=== PATIENT | male | born 1990 | race Hispanic/Latino ===

== ENCOUNTER 2021-03-21 10:52 | Emergency (ER) | payer OTHER ==
--- OUTSIDE RECORDS SUMMARY | 2021-03-21 10:56 | XMS REPORT | Continuity of Care Document ---
:1990 Author Organization [facility] t Address [address] [place] [address] Care Team Providers Name Role Phone Asked, Pcp Primary Care Physician Unavailable Usama Hunter DO Attending Clinician KARMEN Attending Clinician Unavailable MD JESSICA HERR Attending Clinician Unavailable HERR Attending Clinician Unavailable ROSIE Attending Clinician Unavailable MD JESSICA HERR Admitting Clinician Unavailable Payers Payer Name Policy Type Policy Effective Date Expiration Date Sour ce Number [facility] [id number] 2019 [id number]PresentMilitar y Problems Condition Condition Condition Status Onset Resolution Last Treating Co mments Source Name Details Category Date Date Treatment Clinician Date Mixed Mixed Problem Active [facility] anxiety Anxiety 4-20 Family and and 00:00: Practic depressive Depressive 00 e disorder Disorder Acute low Acute Low Problem Active 2019-08 Andrea anastasiya back pain Back Pain 09-02 Fami ly 00:00: Practic 00 e Gynecomast Gynecomast Problem Active 2019-08 [facility] ia ia 08-12 Family 00:00: Practic 00 e Infection Infection Problem Active 2019-08 Andrea anastasiya of toe of Toe 08-12 Family 00:00: Practic 00 e Bilateral Bilateral Problem Active 2019-08 Andrea langford discharge Discharge 08-12 Fami ly from from 00:00: Practic nipples Nipples 00 e Generalize Generalize Problem Active 2019-08 [facility] d anxiety d Anxiety 0-30 Fami ly disorder Disorder 00:00: Practi c 00 e Prediabete Prediabete Problem Active [facility] s s 2-07 Family 00:00: Practic 00 e Liver Liver Problem Active [facility] enzymes Enzymes 2-07 Family abnormal Abnormal 00:00: Practi c 00 e Body mass Body Mass Problem Active Andrea anastasiya index 30+ Index 30+ 1-30 Fami ly - obesity - Obesity 00:00: Prac tic 00 e Disorder Disorder Problem Active [facility] 09-09 Fami ly 00:00: Practic 00 e Essential Essential Problem Active Andrea sandovale hypertensi Hypertensi 1-30 Fa jean-paul on on 00:00: Practic 00 e Low back Low Back Problem Active [facility] pain Pain 1-30 Family 00:00: Practic 00 e Inguinal Inguinal Problem Active [facility] pain Pain -30 Family 00:00: Practic 00 e Concussion Concussion Problem Active [facility] with loss with Loss 30 Fami ly of of 00:00: Practic consciousn Consciousn 00 e ess ess History of History of Problem Active [facility] Jones's 09-09 Family palsy Palsy 00:00: Practic 00 e Cigarette Cigarette Problem Active Andrea sandovale smoker Smoker -30 Family 00:00: Practic 00 e Allergies, Adverse Reactions, Alerts Allergy Allergy Status Severity Reaction(s) Onset Inactive Treating Comm ents Source Name Type Date Date Clinician No Known DA Active U 2018-08 [facility] 09[facility]01 [facility] No Known DA Active U 2008-0 [facility] Contrast 3- [facility] No Known DA Active U 2008-0 [facility] Drug 3- [facility] No Known DA Active U 2009-0 [facility] Food 3- [facility] No Known DA Active U 2009-0 [facility] Other 3- [facility] Allergie 00:00: d [facility] Social History Social Habit Start Date Stop Date Quantity Comments Source History of Snuff User [facility] tobacco use Hospital Tobacco use and 2020-12-04 2020-12-[address] exposure 00:00:00 00:00:00 Hospital Alcohol intake 2020-12-04 2020-12-04 Current drinker [facility] 00:00:00 00:00:00 of alcohol Hospital (finding) Tobacco Comment 2019-09-07 2019-09-07 dip [facility] 00:00:00 00:00:00 Hospital Alcohol Comment 2019-09-07 2019-09-07 socially [facility] 00:00:00 00:00:00 Hospital Sex Assigned At [birth year] [facility] 00:00:00 00:00:00 Hospital Smoking Status Start Date Stop Date Source Former smoker 2020-12-04 00:00:00 2020-12-04 [facility] Medications Ordered Filled Start Stop Current Ordering Indication Dosage Frequency Signature Comments Components Source Medication Medication Date Date Medication? Clinician (SIG) Name Name ondansetron 2020- No 4mg Q8H Take 1 Met hodi (Zofran) 4 -26 04-30 tablet (4 st MG tablet 00:00: 04:59 mg total) Ho spita 00 :00 by mouth l every 8 (eight) hours as needed for nausea or vomiting for up to 3 days. loperamide 2020- No 2mg Q.25D Take 1 Met [facility] (IMODIUM) 2 -26 -30 capsule (2 s t mg capsule 00:00: 04:59 mg total) H ospita 00 :00 by mouth 4 l (four) times a day as needed for diarrhea for up to 3 days. ALPRAZolam Yes .5mg Q24H Take 0.5 Met h[facility] (XANAX) 0.5 4-[address] MG tablet 00:00: mouth [facility]ospita 00 daily as l needed. sertraline Yes 100mg QD Take 100 Me thodi (ZOLOFT) 4-[address] 100 MG 00:00: mouth [facility]osp[facility] tablet 00 daily. l sertraline Yes 50mg QD Take 50 mg M ethodi (ZOLOFT) 50 4-[address] MG tablet 00:00: daily. Hospit a 00 l amLODIPine Yes 10mg QD Take 10 mg M ethodi (NORVASC) 4-[address] 10 mg 00:00: daily. Hospita tablet 00 l alprazolam alprazolam No alprazolam [facility] 0.5 mg 0.5 mg 0.5 mg Family tablet TAKE tablet TAKE tablet Practic 1 TABLET BY 1 TABLET BY TAKE 1 e MOUTH EVERY MOUTH EVERY TABLET BY DAY DAY MOUTH NEEDED NEEDED EVERY DAY NEEDED amlodipine amlodipine No amlodipine [facility] 10 mg 10 mg 10 mg Family tablet TAKE tablet TAKE tablet Practic 1 TABLET BY 1 TABLET BY TAKE 1 e MOUTH EVERY MOUTH EVERY TABLET BY DAY DAY MOUTH EVERY DAY ergocalcife ergocalcife No ergocalcif [facility] rol rol wes Family (vitamin (vitamin (vitamin Pra ctic D2) 1,250 D2) 1,250 D2) 1,250 e mcg (50,000 mcg (50,000 mcg unit) unit) (50,000 capsule capsule unit) TAKE 1 TAKE 1 capsule CAPSULE BY CAPSULE BY TAKE 1 MOUTH MOUTH CAPSULE BY WEEKLY WEEKLY MOUTH WEEKLY hydrochloro hydrochloro No hydrochlor [facility] thiazide 25 thiazide 25 othiazide Family mg tablet mg tablet 25 mg Prac tic TAKE 1 TAKE 1 tablet e TABLET BY TABLET BY TAKE 1 MOUTH EVERY MOUTH EVERY TABLET BY DAY DAY MOUTH DIRECTED DIRECTED EVERY DAY DIRECTED hydroxyzine hydroxyzine No hydroxyzin [facility] HCl 25 mg HCl 25 mg e HCl 25 F amily tablet Take tablet Take mg tablet Practic 1 tablet 1 tablet Take 1 e every day every day tablet by oral by oral every day route at route at by oral bedtime for bedtime for route at 30 days. 30 days. bedtime for 30 days. sertraline sertraline No 2 Q1D sertraline [facility] 100 mg 100 mg 100 mg Family tablet Take tablet Take tablet Practic 2 tablets 2 tablets Take 2 e every day every day tablets by oral by oral every day route as route as by oral directed directed route as for 90 for 90 directed days. days. for 90 days. Immunizations Ordered Immunization Filled Immunization Date Status Commen ts Source Name Name COVID-19, mRNA, COVID-19, mRNA, 2021-01-15 Completed [facility] LNP-S, PF, 30 LNP-S, PF, 30 00:00:00 Practice mcg/0.3 mL dose mcg/0.3 mL dose COVID-19, mRNA, COVID-19, mRNA, 2020-12-31 Completed [facility] Family LNP-S, PF, 30 LNP-S, PF, 30 00:00:00 Practice mcg/0.3 mL dose mcg/0.3 mL dose influenza, influenza, 2020-05-[address] [facility] injectable, injectable, 00:00:00 Practice quadrivalent quadrivalent influenza, influenza, 2019-04-[address] [facility] injectable, injectable, 00:00:00 Practice quadrivalent quadrivalent Td (adult) Td (adult) 2019-02-[address] [facility] preservative free preservative free 00:00:00 Practice Vital Signs Vital Name Observation Time Observation Value Comments Source BP Diastolic 2021-02-16 00:00:00 87 mm[Hg] [facility] Practice Height 2021-02-16 00:00:00 71.5 [in_i] [facility] Practice BMI (Body Mass 2021-02-16 00:00:00 37.8 kg/m2 [facility]) Practice BP Systolic 2021-02-16 00:00:00 145 mm[Hg] [facility] Body Weight 2021-02-16 00:00:00 275 [lb_av] [facility] BP Diastolic 2021-02-02 00:00:00 62 mm[Hg] [facility] Height 2021-02-02 00:00:00 71.5 [in_i] [facility] BMI (Body Mass 2021-02-02 00:00:00 37.3 kg/m2 [facility] Practice BP Systolic 2021-02-02 00:00:00 153 mm[Hg] [facility] Body Weight 2021-02-02 00:00:00 271 [lb_av] [facility] BP Diastolic 2021-01-19 00:00:00 81 mm[Hg] [facility] Height 2021-01-19 00:00:00 71.5 [in_i] [facility] BMI (Body Mass 2021-01-19 00:00:00 37.4 kg/m2 [facility] Practice BP Systolic 2021-01-19 00:00:00 144 mm[Hg] [facility] Practice Body Weight 2021-01-19 00:00:00 271.8 [lb_av] [facility] BP Diastolic 2021-01-03 00:00:00 84 mm[Hg] [facility] Height 2021-01-03 00:00:00 71.5 [in_i] [facility] BMI (Body Mass 2021-01-03 00:00:00 38.4 kg/m2 [facility] BP Systolic 2021-01-03 00:00:00 133 mm[Hg] [facility] Body Weight 2021-01-03 00:00:00 279.3 [lb_av] [facility] BP Diastolic 2020-12-22 00:00:00 101 mm[Hg] [facility] Height 2020-12-22 00:00:00 71.5 [in_i] [facility] BMI (Body Mass 2020-12-22 00:00:00 37.8 kg/m2 [facility] BP Systolic 2020-12-22 00:00:00 158 mm[Hg] [facility] Body Weight 2020-12-22 00:00:00 275 [lb_av] [facility] BP Diastolic 2020-11-28 00:00:00 100 mm[Hg] [facility] Height 2020-11-28 00:00:00 71.5 [in_i] [facility] BMI (Body Mass 2020-11-28 00:00:00 38.6 kg/m2 [facility] BP Systolic 2020-11-28 00:00:00 147 mm[Hg] [facility] Body Weight 2020-11-28 00:00:00 281 [lb_av] [facility] BP Diastolic 2020-09-22 00:00:00 93 mm[Hg] [facility] Height 2020-09-22 00:00:00 71.5 [in_i] [facility] BMI (Body Mass 2020-09-22 00:00:00 38.4 kg/m2 [facility] BP Systolic 2020-09-22 00:00:00 142 mm[Hg] [facility] Body Weight 2020-09-22 00:00:00 279 [lb_av] [facility] Height 2020-09-14 00:00:00 71.5 [in_i] [facility] BMI (Body Mass 2020-09-14 00:00:00 35.8 kg/m2 [facility] Body Weight 2020-09-14 00:00:00 260 [lb_av] [facility] Height 2020-07-03 00:00:00 71.5 [in_i] [facility] BMI (Body Mass 2020-07-03 00:00:00 36.4 kg/m2 [facility] Body Weight 2020-07-03 00:00:00 265 [lb_av] [facility] BP Diastolic 2020-06-07 00:00:00 86 mm[Hg] [facility] Height 2020-06-07 00:00:00 71.5 [in_i] [facility] BMI (Body Mass 2020-06-07 00:00:00 38.4 kg/m2 [facility] BP Systolic 2020-06-07 00:00:00 136 mm[Hg] [facility] Body Weight 2020-06-07 00:00:00 279 [lb_av] [facility] Height 2019-11-10 00:00:00 71.5 [in_i] [facility] BP Diastolic 2019-09-22 00:00:00 84 mm[Hg] [facility] Height 2019-09-22 00:00:00 71.5 [in_i] [facility] BMI (Body Mass 2019-09-22 00:00:00 37.1 kg/m2 [facility] BP Systolic 2019-09-22 00:00:00 140 mm[Hg] [facility] Body Weight 2019-09-22 00:00:00 270 [lb_av] [facility] BP Diastolic 2019-09-09 00:00:00 106 mm[Hg] [facility] Height 2019-09-09 00:00:00 71.5 [in_i] [facility] BMI (Body Mass 2019-09-09 00:00:00 36.1 kg/m2 [facility] Practice BP Systolic 2019-09-09 00:00:00 146 mm[Hg] [facility] Body Weight 2019-09-09 00:00:00 262.8 [lb_av] [facility] Systolic blood 2020-12-04 18:32:40 124 mm[Hg] [facility] pressure Diastolic blood 2020-12-04 18:32:40 59 mm[Hg] [facility] pressure Heart rate 2020-12-04 18:32:40 79 /min [facility] Body temperature 2020-12-04 18:32:40 36.72 [facility] Respiratory rate 2020-12-04 18:32:40 16 /min [facility] Oxygen saturation in 2020-12-04 18:32:40 97 /min [facility] Arterial blood by Pulse oximetry Body height 2020-12-04 16:04:00 180.3 cm [facility] Body weight 2020-12-04 16:04:00 108.863 kg [facility] BMI 2020-12-04 16:04:00 33.47 kg/m2 [facility] Procedures Procedure Date / Time Performing Clinician Source Performed US, thyroid 2021-02-16 00:00:00 [facility] US, abdomen, complete 2021-02-16 00:00:00 [facility] US, echocardiogram 2021-02-16 00:00:00 [facility] US, abdomen, complete 2021-02-02 00:00:00 [facility] US, thyroid 2021-02-02 00:00:00 [facility] electrocardiogram 2021-02-02 00:00:00 [facility] US, echocardiogram 2021-02-02 00:00:00 [facility] MRI, brain + internal 2021-01-19 00:00:00 [facility] canal, w/wo Practice contrast US, abdomen, complete 2021-01-19 00:00:00 [facility] RESPIRATORY PATHOGEN PANEL 2020-12-04 16:36:00 [facility] WITH COVID-19 RT-PCR HC COMPLETE BLD COUNT 2020-12-04 16:23:00 Cassius [facility] W/AUTO DIFF COMPREHENSIVE METABOLIC 2020-12-04 16:23:00 Cassius Hunter [facility] PANEL ESTIMATED GFR 2020-12-04 16:23:00 Cassius Hunter [facility] electrocardiogram 2020-09-22 00:00:00 [facility] Practice MAMMO, diagnostic, digital, 2020-06-07 00:00:[address] [facility] bilateral Practice US, breast, bilateral 2020-06-07 00:00:00 Jun tamayo [facility] Practice Hyperventilation Therapy [facility] for Tra[facility] Injury Pract ice Plan of Care Planned Activity Planned Date Details Comments Source Future Scheduled Test COVID-19 VACCINE (1) [facility] [code = COVID-19 VACCINE (1)] Future Scheduled Test Hepatitis C screening [facility] (procedure) [code = 702878600] Future Scheduled Test INFLUENZA VACCINE M [facility] [code = INFLUENZA VACCINE] Encounters Start End Encounter Admission Attending Care Care Encounter Source Date/Time Date/Time Type Type Clinicians Facility Department ID 2021-02-16 2021-02-16 Merry [facility] [place] - [id number] [facility] ill[facility] 00:00:00 00:00:00 JUDI Carpio: [facility] Medical - Pract ic [address], [address], [facility], [place]) [place] [address] , Ph. 2021-02-02 2021-02-[facility] [place] [facility] [id number] [facility] 00:00:00 00:00:00 JUDI Carpio: [facility] Medical - Pract ic [address], [address] [facility] [place] [address] , Ph. 2021-01-19 2021-01-19 Merry [facility] [place] - [id number] V illage 00:00:00 00:00:00 JUDI Carpio: [facility] Medical - Pract ic [address], [address], [facility], [place]) [place] [address] , Ph. 2021-01-03 2021-01-03 Merry N [facility] [place] - [id number] V illage 00:00:00 00:00:00 JUDI Carpio: [facility] [address] Medical - Practi c Shadow [address], [place] [address] , Ph. 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 2020-12-04 2020-12-04 Emergency Dale, Cassius [id number] Methodi 11:00:00 13:41:[id number] 3.430.2.7 Hospit a .[id number] l .8 2020-12-04 2020-12-04 Emergency DALE, CASSIUS [facility] 064 [id number] [place] 00:00:00 00:00:[address] 2020-12-04 2020-12-04 Travel [id number] Methodi 00:00:00 00:00:[id number] 3.430.2.7 0.2.7.3.698 Ho spita .[id number] 084.8 l .8 2020-11-28 2020-11-28 Nguyễn Tee [facility] [place] [id number] [facility] 00:00:00 00:00:00 Amor Lang Famil y 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 2020-09-22 2020-09-22 Julianna Harris [facility] [id number] [facility] 00:00:00 00:00:00 [facility] [id number] Medical - Prac tic Shadow [address]HOU_[address] [facility], [address] [address] , Ph. 2020-09-14 2020-09-14 [facility] [place] - [id number] V illage 00:00:00 00:00:00 Amor Loza Famil y CUTTING TOOL SHARPENER: [id number] Medical - Prac tic [address], [place] [address] , Ph. 2020-07-03 2020-07-03 [facility] [place] - [id number] [facility] 00:00:00 00:00:00 [facility] Lizzymn, Medical - Pract lawson MD: [id number], [place] [address] , Ph. 2020-06-07 2020-06-07 June [facility] [place] - [id number] [facility] 00:00:00 00:00:00 [facility] Lizzymn, Medical - Pract lawson MD: [id number] [address], [place] [address] , Ph. 2020-02-05 2020-02-05 Emergency CHIN, SHIAU [facility] 064 [id number] [place] 00:00:00 00:00:[address] 2020-01-31 2020-01-31 Emergency DE ALONZO, [facility] 064 [id number] [place] 00:00:00 00:00:00 JUNG Blanca2 Nm thodi 2019-11-10 2019-11-10 [facility] [place] - [id number] [facility] 00:00:00 00:00:00 [facility] Josh, Medical - Pract lawson MD: [id number] [address], [place] [address] , Ph. 2019-09-22 2019-09-22 June [facility] [place] - [id number] [facility] 00:00:00 00:00:00 [facility] Lizzymn, Medical - Pract lawson MD: [id number] [address] [facility], [address], [place] [address] , Ph. 2019-09-09 2019-09-09 June [facility] [place] - [id number] [facility] 00:00:00 [facility]:00[facility]00 [facility] - Pract ic MD: [id number] ASPEN_TINO[address] [facility], [address], [place] [address] , Ph. 2019-09-06 2019-09-07 [place] [address] [id number] [place] 00:00:00 00:00:00 NADER Barajas[address] Results Test Description Test Time Test Comments Results Result Comments Source HFE gene mutations tested for in Blood or Tissue by Bruce sin 2021-01-29 20:03:00 genetics method Nominal Test Item Value Reference Range Interpretation Comme nts hereditary hemochromatosis DNA mut (test code = hereditary see belo w hemochromatosis DNA mut) [facility] IgG Ab [Units/volume] in Serum by [id number] 20:03:00 Test Item Value Reference Range Interpretation Comments ELIDA screen, ifa (test code = ELIDA negative negative screen, ifa) [facility] [Presence] in [id number] 20:03:00 Test Item Value Reference Range Interpretation Comments mitochondrial Ab screen (test code = negative negative mitochondrial Ab screen) mitochondrial Ab titer (test code = tnp mitochondrial Ab titer) [facility] free and total panel [Mass/volume] - Serum or [id number] 20:03:00 Test Item Value Reference Range Interpretation Comments testosterone, total, MS (test code 233 NG/dL 250-1100 L = testosterone, total, MS) testosterone, free (test code = 77.7 pg/mL 35.0-155.0 testosterone, free) [facility] CenterCeruloplasmin [Mass/volume] in Serum or [id number] 20:03:00 Test Item Value Reference Range Interpretation Comments ceruloplasmin (test code = 26 mg/dL 18-36 ceruloplasmin) [facility]iodothyronine (T3) [Mass/volume] in Serum or Plasma 2021-01-29 20:03:00 Test Item Value Reference Range Interpretation Comments T3, total (test code = T3, total) 269 NG/dL 76-181 H [facility] CenterActin smooth muscle Ab [Presence] in Serum by Immunoassay 2021-01-29 20:03:00 Test Item Value Reference Range Interpretation Comments actin (smooth muscle) antibody (IgG) <20 (test code = actin (smooth muscle) antibody (IgG)) [facility] glutamyl transferase [Enzymatic activity/volume] in Serum or [id number] 20:03:00 Test Item Value Reference Range Interpretation Comments GGT (test code = GGT) 79 U/L 3-70 H [facility] CenterRheumatoid factor [Units/volume] in Serum or Plasma 2021-01-29 20:03:00 Test Item Value Reference Range Interpretation Comments rheumatoid factor (test code = <14 <14 rheumatoid factor) [facility] CenterThyroperoxidase Ab [Units/volume] in [id number] 20:03:00 Test Item Value Reference Range Interpretation Comments thyroid peroxidase antibodies (test 2 IU/mL <9 code = thyroid peroxidase antibodies) [facility] Center[facility] stimulating immunoglobulins [Units/volume] in [id number] 20:03:00 Test Item Value Reference Range Interpretation Comments tsi (test code = tsi) <89 <140 [facility] CenterEgnqhgbwVczsu-9-zyirwyxhufn.tumor marker [Mass/volume] in Serum or [id number] 20:03:00 Test Item Value Reference Range Interpretation Comments alpha fetoprotein, tumor marker 1.3 NG/mL <6.1 (test code = alpha fetoprotein, tumor marker) [facility] CenterHFE gene mutations tested for in Blood or Tissue by Molecular genetics method [id number] 20:03:00 Test Item Value Reference Range Interpretation Comments hereditary hemochromatosis DNA mut see below (test code = hereditary hemochromatosis DNA mut) [facility] CenterNe[facility]onal nuclear IgG Ab [Units/volume] in Serum by [id number] 20:03:00 Test Item Value Reference Range Interpretation Comments ELIDA screen, ifa (test code = ELIDA negative negative screen, ifa) [facility] CenterMitochondria Ab [Presence] in [id number] 20:03:00 Test Item Value Reference Range Interpretation Comments mitochondrial Ab screen (test code = negative negative mitochondrial Ab screen) mitochondrial Ab titer (test code = tnp mitochondrial Ab titer) [facility] CenterTestosterone free and total panel [Mass/volume] - Serum or [id number] 20:03:00 Test Item Value Reference Range Interpretation Comments testosterone, total, MS (test code 233 NG/dL 250-1100 L = testosterone, total, MS) testosterone, free (test code = 77.7 pg/mL 35.0-155.0 testosterone, free) [facility] CenterCeruloplasmin [Mass/volume] in Serum or [id number] 20:03:00 Test Item Value Reference Range Interpretation Comments ceruloplasmin (test code = 26 mg/dL 18-36 ceruloplasmin) [facility] CenterTriiodothyronine (T3) [Mass/volume] in Serum or Plasma 2021-01-29 20:03:00 Test Item Value Reference Range Interpretation Comments T3, total (test code = T3, total) 269 NG/dL 76-181 H [facility] CenterActin smooth muscle Ab [Presence] in Serum by Immunoassay 2021-01-29 20:03:00 Test Item Value Reference Range Interpretation Comments actin (smooth muscle) antibody (IgG) <20 (test code = actin (smooth muscle) antibody (IgG)) [facility] CenterGamma glutamyl transferase [Enzymatic activity/volume] in Serum or [id number] 20:03:00 Test Item Value Reference Range Interpretation Comments GGT (test code = GGT) 79 U/L 3-70 H [facility] CenterRheumatoid factor [Units/volume] in Serum or Plasma 2021-01-29 20:03:00 Test Item Value Reference Range Interpretation Comments rheumatoid factor (test code = <14 <14 rheumatoid factor) [facility] CenterThyroperoxidase Ab [Units/volume] in [id number] 20:03:00 Test Item Value Reference Range Interpretation Comments thyroid peroxidase antibodies (test 2 IU/mL <9 code = thyroid peroxidase antibodies) [facility] CenterThyroid stimulating immunoglobulins [Units/volume] in [id number] 20:03:00 Test Item Value Reference Range Interpretation Comments tsi (test code = tsi) <89 <140 [facility] CenterRotdykklAxmlg-7-jrtjoyzaqxl.tumor marker [Mass/volume] in Serum or [id number] 20:03:00 Test Item Value Reference Range Interpretation Comments alpha fetoprotein, tumor marker 1.3 NG/mL <6.1 (test code = alpha fetoprotein, tumor marker) [facility] PracticeTriiodothyronine resin uptake (T3RU) in Serum or Plasma 2021-01-22 14:23:00 Test Item Value Reference Range Interpretation Comments T3 uptake (test code = T3 uptake) 29 % 22-35 [facility] Centermit extractable nuclear Ab [Units/volume] in Serum 2021-01-22 14:23:00 Test Item Value Reference Range Interpretation Comments sm antibody (test <1.0 neg See_Comment [Automate d message] The code = sm antibody) system w [employer] generated this result tra nsmitted reference range : <1.0 neg. The refere nce range was not used to interpret this result as normal/abnormal . [facility] PracticeTriiodothyronine resin uptake (T3RU) in Serum or Plasma 2021-01-22 14:23:00 Test Item Value Reference Range Interpretation Comments T3 uptake (test code = T3 uptake) 29 % 22-35 [facility] Centermit extractable nuclear Ab [Units/volume] in Serum 2021-01-22 14:23:00 Test Item Value Reference Range Interpretation Comments sm antibody (test <1.0 neg See_Comment [Automate d message] The code = sm antibody) system w [employer] generated this result tra nsmitted reference range : <1.0 neg. The refere nce range was not used to interpret this result as normal/abnormal . [facility] CenterFerritin [Mass/volume] in Serum or [id number] 12:17:00 Test Item Value Reference Range Interpretation Comments ferritin (test code = ferritin) 787.98 NG/mL 21.81-274.66 H [facility] CenterThyroxine (T4) free [Mass/volume] in Serum or Plasma 2021-01-22 12:17:00 Test Item Value Reference Range Interpretation Comments T4 free (test code = T4 free) 0.47 NG/dL 0.70-1.[address] [facility] PracticeFerritin [Mass/volume] in Serum or [id number] 12:17:00 Test Item Value Reference Range Interpretation Comments ferritin (test code = ferritin) 787.98 NG/mL 21.81-274.66 [facility] [Mass/volume] in Serum or Plasma 2021-01-22 12:17:00 Test Item Value Reference Range Interpretation Comments T4 free (test code = T4 free) 0.47 NG/dL 0.70-1.48 L [facility] CenterHepatic function 1999 panel - Serum or [id number] 12:08:00 Test Item Value Reference Range Interpretation Comments ALT (test code = ALT) 98 U/L 0-55 H AST (test code = AST) 49 U/L 5-34 H alk phos (test code = alk phos) 94 unit/L 40-150 albumin (test code = albumin) 4.6 g/dL 3.4-5.1 total bilirubin (test code = total 0.9 mg/dL 0.2-1.2 bilirubin) indirect bilirubin (calculated) 0.6 0.0-1.2 (test code = indirect bilirubin (calculated)) direct bilirubin (test code = 0.3 mg/dL 0.0-0.5 direct bilirubin) total protein (test code = total 7.8 g/dL 6.1-8.2 protein) [facility] CenterThyrotropin [Units/volume] in Serum or [id number] 12:08:00 Test Item Value Reference Range Interpretation Comments TSH (test code = TSH) 0.026 uIU/mL 0.350-4.940 L [facility] CenterHepatic function 1999 panel - Serum or [id number] 12:08:00 Test Item Value Reference Range Interpretation Comments ALT (test code = ALT) 98 U/L 0-55 H AST (test code = AST) 49 U/L 5-34 H alk phos (test code = alk phos) 94 unit/L 40-150 albumin (test code = albumin) 4.6 g/dL 3.4-5.1 total bilirubin (test code = total 0.9 mg/dL 0.2-1.2 bilirubin) indirect bilirubin (calculated) 0.6 0.0-1.2 (test code = indirect bilirubin (calculated)) direct bilirubin (test code = 0.3 mg/dL 0.0-0.5 direct bilirubin) total protein (test code = total 7.8 g/dL 6.1-8.2 protein) [facility] CenterThyrotropin [Units/volume] in Serum or [id number] 12:08:00 Test Item Value Reference Range Interpretation Comments TSH (test code = TSH) 0.026 uIU/mL 0.350-4.940 L [facility] CenterAmylase [Enzymatic activity/volume] in Serum or Plasma 2021-01-05 13:33:00 Test Item Value Reference Range Interpretation Comments amylase (test code = amylase) 26 U/L [facility] PracticeLipase [Enzymatic activity/volume] in Serum or Plasma 2021-01-05 13:33:00 Test Item Value Reference Range Interpretation Comments lipase (test code = lipase) 32 U/L [facility] PracticeAcute hepatitis 1999 panel - [id number] 13:33:00 Test Item Value Reference Range Interpretation Comments hepatitis A IgM (test code = non-reactive non-reactive hepatitis A IgM) hepatitis B surface antigen non-reactive non-reactive (test code = hepatitis B surface antigen) hepatitis B core antibody (IgM) non-reactive non-reactive (test code = hepatitis B core antibody (IgM)) hepatitis C antibody (test code non-reactive non-reactive = hepatitis C antibody) index (test code = index) 0.03 <1.00 [facility] CenterAmylase [Enzymatic activity/volume] in Serum or Plasma 2021-01-05 13:33:00 Test Item Value Reference Range Interpretation Comments amylase (test code = amylase) 26 U/L [facility] CenterLipase [Enzymatic activity/volume] in Serum or Plasma 2021-01-05 13:33:00 Test Item Value Reference Range Interpretation Comments lipase (test code = lipase) 32 U/L [facility] PracticeAcute hepatitis 1999 panel - [id number] 13:33:00 Test Item Value Reference Range Interpretation Comments hepatitis A IgM (test code = non-reactive non-reactive hepatitis A IgM) hepatitis B surface antigen non-reactive non-reactive (test code = hepatitis B surface antigen) hepatitis B core antibody (IgM) non-reactive non-reactive (test code = hepatitis B core antibody (IgM)) hepatitis C antibody (test code non-reactive non-reactive = hepatitis C antibody) index (test code = index) 0.03 <1.00 [facility] Centeriron + TIBC + ferritin, [id number] 10:13:00 Test Item Value Reference Range Interpretation Comments ferritin (test code = ferritin) 612.32 NG/mL 21.81-274.66 H iron, total (test code = iron, 108 mcg/dL 50-195 total) transferrin (test code = 217 mg/dL 174-364 transferrin) total iron binding capacity 310 mcg/dL 250-425 (calculated) (test code = total iron binding capacity (calculated)) % saturation (test code = % 34.8 % 15.0-60.0 saturation) [facility] Centeriron + TIBC + ferritin, [id number] 10:13:00 Test Item Value Reference Range Interpretation Comments ferritin (test code = ferritin) 612.32 NG/mL 21.81-274.66 H iron, total (test code = iron, 108 mcg/dL 50-195 total) transferrin (test code = 217 mg/dL 174-364 transferrin) total iron binding capacity 310 mcg/dL 250-425 (calculated) (test code = total iron binding capacity (calculated)) % saturation (test code = % 34.8 % 15.0-60.0 saturation) [facility] CenterUrinalysis complete W Reflex Culture panel - Urine 2021-01-05 03:23:00 Test Item Value Reference Range Interpretation Comments color (test code = yellow yellow color) appearance (test code clear clear = appearance) specific gravity (test 1.019 1.001-1.035 code = specific gravity) pH (test code = pH) 5.5 5.0-8.0 glucose (test code = negative negative glucose) bilirubin (test code = negative negative bilirubin) ketones (test code = negative negative ketones) occult blood (test negative negative code = occult blood) protein (test code = negative negative protein) nitrite (test code = negative negative nitrite) leukocyte esterase negative negative (test code = leukocyte esterase) WBC (test code = WBC) none seen See_Comment [Auto mated message] The system [employer] generated this result transmitted ref erence range: < or = 5 . The reference range was not used to int erpret this result as normal/abnormal . RBC (test code = RBC) none seen See_Comment [Auto mated message] The system [employer] generated this result transmitted ref erence range: < or = 2 . The reference range was not used to int erpret this result as normal/abnormal . squamous epithelial none seen See_Comment [Automa ortiz message] cells (test code = The syste m which squamous epithelial generate d this result cells) transmitted ref erence range: < or = 5 . The reference range was not used to int erpret this result as normal/abnormal . bacteria (test code = none seen none seen bacteria) hyaline cast (test none seen none seen code = hyaline cast) [facility] CenterBacteria identified in Urine by [id number] 03:23:00Reflexive Urine CultureViColusa Regional Medical CenterUrinalysis complete W Reflex Culture panel - [id number] 03:23:00 Test Item Value Reference Range Interpretation Comments color (test code = yellow yellow color) appearance (test code clear clear = appearance) specific gravity (test 1.019 1.001-1.035 code = specific gravity) pH (test code = pH) 5.5 5.0-8.0 glucose (test code = negative negative glucose) bilirubin (test code = negative negative bilirubin) ketones (test code = negative negative ketones) occult blood (test negative negative code = occult blood) protein (test code = negative negative protein) nitrite (test code = negative negative nitrite) leukocyte esterase negative negative (test code = leukocyte esterase) WBC (test code = WBC) none seen See_Comment [Auto mated message] The system [employer] generated this result transmitted ref erence range: < or = 5 . The reference range was not used to int erpret this result as normal/abnormal . RBC (test code = RBC) none seen See_Comment [Auto mated message] The system [employer] generated this result transmitted ref erence range: < or = 2 . The reference range was not used to int erpret this result as normal/abnormal . squamous epithelial none seen See_Comment [[employer]oma ortiz message] cells (test code = The syste m which squamous epithelial generate d this result cells) transmitted ref erence range: < or = 5 . The reference range was not used to int erpret this result as normal/abnormal . bacteria (test code = none seen none seen bacteria) hyaline cast (test none seen none seen code = hyaline cast) [facility] CenterBacteria identified in Urine by [id number] 03:23:00Reflexive Urine CultureViColusa Regional Medical CenterHemoglobin A1c/Hemoglobin.total in [id number] 17:07:00 Test Item Value Reference Range Interpretation Comments Hemoglobin A1c/Hemoglobin.total in 6.3 % 1.0-5.7 H Blood (test code = 4548-4) average blood glucose (calculation) 134 mg/dL (test code = average blood glucose (calculation)) [facility] CenterHemoglobin A1c/Hemoglobin.total in [id number] 17:07:00 Test Item Value Reference Range Interpretation Comments Hemoglobin A1c/Hemoglobin.total in 6.3 % 1.0-5.7 H Blood (test code = 4548-4) average blood glucose (calculation) 134 mg/dL (test code = average blood glucose (calculation)) [facility] CenterComprehensive metabolic 1999 panel - Serum or Plasma 2021-01-04 16:59:00 Test Item Value Reference Range Interpretation Comments ALT (test code = ALT) 103 U/L 0-55 H AST (test code = AST) 56 U/L 5-34 H BUN (test code = BUN) 12.9 mg/dL 8.9-25.0 alk phos (test code = alk phos) 90 unit/L 40-150 glucose (test code = glucose) 133 mg/dL 70-99 H albumin (test code = albumin) 4.2 g/dL 3.4-5.1 creatinine (test code = 0.81 mg/dL 0.72-1.25 creatinine) eGFR non- (test >60 code = eGFR non-) total bilirubin (test code = 0.8 mg/dL 0.2-1.2 total bilirubin) eGFR - (test >60 code = eGFR - ) sodium (test code = sodium) 141 mEq/L 135-145 potassium (test code = potassium) 5.1 mEq/L 3.5-5.3 chloride (test code = chloride) 106 mmol/L 98-110 total protein (test code = total 7.4 g/dL 6.1-8.2 protein) calcium (test code = calcium) 9.7 mg/dL 8.4-10.4 CO2 (test code = CO2) 28.9 mmol/L 20.0-32.0 anion gap (test code = anion gap) 6 calc [facility] CenterLipid 1995 panel - Serum or [id number] 16:59:00 Test Item Value Reference Range Interpretation Comments HDL (test code = HDL) 52 mg/dL triglyceride (test code = 87 mg/dL <150 triglyceride) VLDL (calculated) (test code = VLDL 17 mg/dL (calculated)) cholesterol/HDL ratio (test code = 3.4 mg/dL cholesterol/HDL ratio) non-HDL cholesterol (calculated) 125 mg/dL <160 (test code = non-HDL cholesterol (calculated)) cholesterol (test code = 177 mg/dL <200 cholesterol) Cholesterol in LDL [Mass/volume] in 108 mg/dL <130 Serum or Plasma (test code = 2089-1) [facility] CenterThyrotropin [Units/volume] in Serum or [id number] 16:59:00 Test Item Value Reference Range Interpretation Comments TSH (test code = TSH) 0.291 uIU/mL 0.350-4.940 L [facility] CenterYmgruvdh67-Ahuoskzzbpowjg D3+25-Hydroxyvitamin D2 [Mass/volume] in Serum or [id number] 16:59:00 Test Item Value Reference Range Interpretation Comments vitamin D 25OH (test code = 11.9 NG/mL 30.0-96.0 L vitamin D 25OH) [facility] CenterComprehensive metabolic 2000 panel - Serum or Plasma 2021-01-04 16:59:00 Test Item Value Reference Range Interpretation Comments ALT (test code = ALT) 103 U/L 0-55 H AST (test code = AST) 56 U/L 5-34 H BUN (test code = BUN) 12.9 mg/dL 8.9-25.0 alk phos (test code = alk phos) 90 unit/L 40-150 glucose (test code = glucose) 133 mg/dL 70-99 H albumin (test code = albumin) 4.2 g/dL 3.4-5.1 creatinine (test code = 0.81 mg/dL 0.72-1.25 creatinine) eGFR non- (test >60 code = eGFR non-) total bilirubin (test code = 0.8 mg/dL 0.2-1.2 total bilirubin) eGFR - (test >60 code = eGFR - ) sodium (test code = sodium) 141 mEq/L 135-145 potassium (test code = potassium) 5.1 mEq/L 3.5-5.3 chloride (test code = chloride) 106 mmol/L 98-110 total protein (test code = total 7.4 g/dL 6.1-8.2 protein) calcium (test code = calcium) 9.7 mg/dL 8.4-10.4 CO2 (test code = CO2) 28.9 mmol/L 20.0-32.0 anion gap (test code = anion gap) 6 calc [facility] CenterLipid 1996 panel - Serum or [id number] 16:59:00 Test Item Value Reference Range Interpretation Comments HDL (test code = HDL) 52 mg/dL triglyceride (test code = 87 mg/dL <150 triglyceride) VLDL (calculated) (test code = VLDL 17 mg/dL (calculated)) cholesterol/HDL ratio (test code = 3.4 mg/dL cholesterol/HDL ratio) non-HDL cholesterol (calculated) 125 mg/dL <160 (test code = non-HDL cholesterol (calculated)) cholesterol (test code = 177 mg/dL <200 cholesterol) Cholesterol in LDL [Mass/volume] in 108 mg/dL <130 Serum or Plasma (test code = 2089-1) [facility] CenterThyrotropin [Units/volume] in Serum or [id number] 16:59:00 Test Item Value Reference Range Interpretation Comments TSH (test code = TSH) 0.291 uIU/mL 0.350-4.940 L [facility] CenterCuknyfgu24-Ogsvdotbkkjftq D3+25-Hydroxyvitamin D2 [Mass/volume] in Serum or [id number] 16:59:00 Test Item Value Reference Range Interpretation Comments vitamin D 25OH (test code = 11.9 NG/mL 30.0-96.0 L vitamin D 25OH) [facility] CenterCBC W Auto Differential panel - [id number] 15:59:00 Test Item Value Reference Range Interpretation Comments WBC (test code = WBC) 6.95 x10*3/?L 4.23-9.07 RBC (test code = RBC) 5.19 10*12/L 4.63-6.08 hemoglobin (test code = 15.60 g/dL 13.70-17.50 hemoglobin) hematocrit (test code = 46.1 % 40.1-51.0 hematocrit) MCV (test code = MCV) 88.8 fL 80.0-100.0 MCH (test code = MCH) 30.1 pg 25.7-32.2 MCHC (test code = MCHC) 33.8 g/dL 32.3-36.5 RDW-SD (test code = RDW-SD) 38.8 fL 35.1-43.9 platelet count (test code = 245.0 k/uL 163.0-337.0 platelet count) MPV (test code = MPV) 11.7 fL 7.5-11.5 H neut% (test code = neut%) 62.8 % 34.0-67.9 lymph% (test code = lymph%) 26.9 % 21.8-53.1 mon% (test code = mon%) 7.8 % 5.3-12.2 eos% (test code = eos%) 1.3 % 0.8-7.0 baso% (test code = baso%) 0.6 % 0.2-1.2 neut# (test code = neut#) 4.4 x10*3/?L 1.8-5.4 lymph# (test code = lymph#) 1.9 x10*3/?L 1.3-3.6 mon# (test code = mon#) 0.5 x10*3/?L 0.3-0.8 eos# (test code = eos#) 0.09 x10*3/?L 0.04-0.54 baso# (test code = baso#) 0.04 x10*3/?L 0.01-0.08 [facility] Auto Differential panel - [id number] 15:59:00 Test Item Value Reference Range Interpretation Comments WBC (test code = WBC) 6.95 x10*3/?L 4.23-9.07 RBC (test code = RBC) 5.19 10*12/L 4.63-6.08 hemoglobin (test code = 15.60 g/dL 13.70-17.50 hemoglobin) hematocrit (test code = 46.1 % 40.1-51.0 hematocrit) MCV (test code = MCV) 88.8 fL 80.0-100.0 MCH (test code = MCH) 30.1 pg 25.7-32.2 MCHC (test code = MCHC) 33.8 g/dL 32.3-36.5 RDW-SD (test code = RDW-SD) 38.8 fL 35.1-43.9 platelet count (test code = 245.0 k/uL 163.0-337.0 platelet count) MPV (test code = MPV) 11.7 fL 7.5-11.5 H neut% (test code = neut%) 62.8 % 34.0-67.9 lymph% (test code = lymph%) 26.9 % 21.8-53.1 mon% (test code = mon%) 7.8 % 5.3-12.2 eos% (test code = eos%) 1.3 % 0.8-7.0 baso% (test code = baso%) 0.6 % 0.2-1.2 neut# (test code = neut#) 4.4 x10*3/?L 1.8-5.4 lymph# (test code = lymph#) 1.9 x10*3/?L 1.3-3.6 mon# (test code = mon#) 0.5 x10*3/?L 0.3-0.8 eos# (test code = eos#) 0.09 x10*3/?L 0.04-0.54 baso# (test code = baso#) 0.04 x10*3/?L 0.01-0.08 [facility] CenterHemoglobin A1c/Hemoglobin.total in [id number] 16:28:00 Test Item Value Reference Range Interpretation Comments Hemoglobin A1c/Hemoglobin.total in 6.0 % 1.0-5.7 H Blood (test code = 4548-4) average blood glucose (calculated) 126 mg/dL (test code = average blood glucose (calculated)) [facility] CenterHepatic function 2000 panel - Serum or [id number] 16:01:00 Test Item Value Reference Range Interpretation Comments ALT (test code = ALT) 72 U/L 0-55 H AST (test code = AST) 66 U/L 5-34 H alk phos (test code = alk phos) 79 unit/L 40-150 albumin (test code = albumin) 4.7 g/dL 3.4-5.1 total bilirubin (test code = total 0.5 mg/dL 0.2-1.2 bilirubin) indirect bilirubin (calculated) 0.3 0.0-1.2 (test code = indirect bilirubin (calculated)) direct bilirubin (test code = 0.2 mg/dL 0.0-0.5 direct bilirubin) total protein (test code = total 7.9 g/dL 6.1-8.2 protein) [facility] CenterThyrotropin [Units/volume] in Serum or [id number] 16:01:00 Test Item Value Reference Range Interpretation Comments TSH (test code = TSH) 1.903 uIU/mL 0.350-4.940 [facility] CenterTestosterone [Mass/volume] in Serum or [id number] 16:01:00 Test Item Value Reference Range Interpretation Comments testosterone, total (test code = 301.09 NG/dL 240.24-870.68 testosterone, total) [facility] CenterIron [Mass/volume] in Serum or [id number] 16:01:00 Test Item Value Reference Range Interpretation Comments iron, total (test code = iron, 92 mcg/dL 50-195 total) [facility] CenterAcute hepatitis 2000 panel - [id number] 08:56:00 Test Item Value Reference Range Interpretation Comments hepatitis A IgM (test code = non-reactive non-reactive hepatitis A IgM) hepatitis B surface antigen non-reactive non-reactive (test code = hepatitis B surface antigen) hepatitis B core antibody (IgM) non-reactive non-reactive (test code = hepatitis B core antibody (IgM)) hepatitis C antibody (test code non-reactive non-reactive = hepatitis C antibody) signal to cut-off (test code = 0.02 <1.00 signal to cut-off) [facility] CenterEstradiol (E2) [Mass/volume] in Serum or [id number] 03:26:00 Test Item Value Reference Range Interpretation Comments estradiol (test code = estradiol) 28 pg/mL < or = 39 [facility] CenterProlactin [Mass/volume] in Serum or [id number] 03:26:00 Test Item Value Reference Range Interpretation Comments prolactin (test code = prolactin) 7.1 NG/mL 2.0-18.0 [facility] CenterARS coronavirus 2 RNA [Presence] in Respiratory specimen by OLEG with probe [id number] 18:49:58 Test Item Value Reference Range Interpretation Comments SARS coronavirus 2 RNA [Presence] in Detected Not-Detected Respiratory specimen by OLEG with probe detection (test code = 27285-4) Comprehensive metabolic 1999 panel - Serum or [id number] 00:00:00 Test Item Value Reference Range Interpretation Comments ALT (test code = ALT) 78 U/L 0-55 H AST (test code = AST) 68 U/L 5-34 H BUN (test code = BUN) 16.0 mg/dL 8.9-25.0 alk phos (test code = alk phos) 84 unit/L 40-150 glucose (test code = glucose) 95 mg/dL 70-99 albumin (test code = albumin) 4.3 g/dL 3.4-5.1 creatinine (test code = 1.19 mg/dL 0.72-1.25 creatinine) eGFR non- (test >60 code = eGFR non-) total bilirubin (test code = 0.8 mg/dL 0.2-1.2 total bilirubin) eGFR - (test >60 code = eGFR - ) sodium (test code = sodium) 142 mEq/L 135-145 potassium (test code = potassium) 4.4 mEq/L 3.5-5.3 chloride (test code = chloride) 107 mmol/L 98-110 total protein (test code = total 7.2 g/dL 6.1-8.2 protein) calcium (test code = calcium) 9.8 mg/dL 8.6-10.4 CO2 (test code = CO2) 26.5 mmol/L 20.0-32.0 anion gap (test code = anion gap) 9 calc [facility] CenterLipid [facility] panel - Serum or [id number] 00:00:00 Test Item Value Reference Range Interpretation Comments HDL (test code = HDL) 55 mg/dL triglyceride (test code = 62 mg/dL <150 triglyceride) VLDL (calculated) (test code = VLDL 12 mg/dL (calculated)) cholesterol/HDL ratio (test code = 3.0 mg/dL cholesterol/HDL ratio) non-HDL cholesterol (calculated) 112 mg/dL <160 (test code = non-HDL cholesterol (calculated)) cholesterol (test code = 167 mg/dL <200 cholesterol) Cholesterol in LDL [Mass/volume] in 100 mg/dL <130 Serum or Plasma (test code = 2089-1) [facility] CenterThyrotropin [Units/volume] in Serum or [id number] 00:00:00 Test Item Value Reference Range Interpretation Comments TSH (test code = TSH) 1.282 uIU/mL 0.350-4.940 [facility] CenterHemoglobin A1c/Hemoglobin.total in [id number] 00:00:00 Test Item Value Reference Range Interpretation Comments Hemoglobin A1c/Hemoglobin.total in 6.0 % 1.0-5.7 H Blood (test code = 4548-4) average blood glucose (test code = 126 mg/dL average blood glucose) [facility] CenterCBC W Auto Differential panel - [id number] 00:00:00 Test Item Value Reference Range Interpretation Comments white blood cell count (test 5.1 thousand/uL 3.8-10.8 code = white blood cell count) red blood cell count (test 5.08 million/uL 4.20-5.80 code = red blood cell count) hemoglobin (test code = 15.4 g/dL 13.2-17.1 hemoglobin) hematocrit (test code = 45.1 % 38.5-50.0 hematocrit) MCV (test code = MCV) 88.8 fL 80.0-100.0 MCH (test code = MCH) 30.3 pg 27.0-33.0 MCHC (test code = MCHC) 34.1 g/dL 32.0-36.0 RDW (test code = RDW) 12.5 % 11.0-15.0 platelet count (test code = 210 thousand/uL 140-400 platelet count) MPV (test code = MPV) 12.4 fL 7.5-12.5 absolute neutrophils (test 2764 cells/uL 0266-1467 code = absolute neutrophils) absolute lymphocytes (test 1795 cells/uL 850-3900 code = absolute lymphocytes) absolute monocytes (test code 428 cells/uL 200-950 = absolute monocytes) absolute eosinophils (test 61 cells/uL 15-500 code = absolute eosinophils) absolute basophils (test code 51 cells/uL 0-200 = absolute basophils) neutrophils (test code = 54.2 % neutrophils) lymphocytes (test code = 35.2 % lymphocytes) monocytes (test code = 8.4 % monocytes) eosinophils (test code = 1.2 % eosinophils) basophils (test code = 1.0 % basophils) [facility]
[2021-03-21 12:42] LABS: Urine Blood Negative (Negative); Urine Glucose Negative (Negative); Urine Protein Trace (Negative); Urine Specific Gravity 1.025 (1.005-1.030)
[2021-03-21 12:58] LABS: Barbiturates NEGATIVE (NEGATIVE); Benzodiazepines POSITIVE (NEGATIVE); Cocaine NEGATIVE (NEGATIVE); METHAMPHETAM NEGATIVE (NEGATIVE); Methadone NEGATIVE (NEGATIVE); Opiates NEGATIVE (NEGATIVE); Phencyclidine NEGATIVE (NEGATIVE); THC Cannibis NEGATIVE (NEGATIVE)
[2021-03-21 13:41] LABS: ALT/SGPT 88 U/L (12-78); AST/SGOT 46 U/L (15-37); Albumin 3.8 g/dL (3.4-5.0); Alkaline Phosphatase 80 U/L (45-117); BUN Blood Urea Nitrogen 9 mg/dL (7-18); Bicarbonate 26 mmol/L (21-32); Bilirubin Direct 0.1 mg/dL (0-0.2); Bilirubin Total 0.4 mg/dL (0.2-1.0); Glucose Level 184 mg/dL (74-106); Potassium 3.9 mmol/L (3.5-5.1); Protein, Total 7.1 g/dL (6.4-8.2); Sodium Level 139 mmol/L (136-145)
[2021-03-21 14:04] LABS: Absolute Lymphocytes (CBC) 1.8 K/uL (0.7-4.9); Basophils % 0.6 % (0-1.3); Hematocrit 44.7 % (39.6-49.0); Lymphocytes % 28.9 % (15.3-44.8); MPV 9.8 fL (7.6-11.3); RBC Red Blood Cell Count 4.85 M/uL (4.33-5.43)
[2021-03-21 14:08] LABS: Protime INR 0.97
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
[2021-03-21 16:05] VITALS: BP 148/81; TEMP 98.1; O2SAT 98
== END 2021-03-21 15:37 | disposition home or self-care (01) ==
LOC: ER 10:52
DX: F43.0 Acute stress reaction (principal); F32.9 Major depressive disorder, single episode, unspecified; F17.220 Nicotine dependence, chewing tobacco, uncomplicated; I10 Essential (primary) hypertension; Z20.822 Contact with and (suspected) exposure to COVID-19
CPT/HCPCS: 93005; 85025; 80048; 36415; 80320; 80329 ×2; 85610; 80076; 85730; 81003; 80307; 99284; U0003